=== PATIENT | male | born 1980 | race Caucasian/White ===

== ENCOUNTER 2018-02-24 17:36 | Emergency (ER) | payer SELFPAY ==
[~2018-02-24] VITALS: Ht 188 cm; Wt 75.0 kg
[~2018-02-24 17:36] MED LIST: POLY10O EACH EYE
[2018-02-24 17:55] VITALS: BP 130/69; PULSE 83; RESP 18; TEMP 100; TEMP 98; O2SAT 100
[2018-02-24] MEDS ORDERED: SULFAMETHOXAZOLE-TRIMETHOPRIM DS 800-160 MG TAB PO ONE (20:15)
[2018-02-24] MEDS ORDERED: CEPHALEXIN MONOHYDRATE 500 MG CAP PO ONE (20:15)
--- NOTE | 2018-02-24 20:20 | PD ---
HPI Chief Complaint: Skin Problem Time Seen by Provider: 20:07 Travel History International Travel<30 days: No Contact w/Intl Traveler<30days: No Traveled to known affect area: No History of Present Illness HPI 37-year-old male presents the emergency department with injury to the right inner anguiano with localized erythema secondary to the abrasion which occurred while he was surfing several days ago. Patient has had increased pain , swelling, and redness. Patient is unsure of his last tetanus shot. Pain is about a 4 out of 10. He has had increased swelling and redness in the last 24 hours which brought him in today. Patient denies fever, chills, or other symptoms. He has had some slight drainage from the wound which is serosanguineous in nature. Patient is also concerned about recent weight loss of approximately 10 pounds in the last month. He is also had some discomfort in the right lower back which he states is his "kidney". He denies penile discharge, dysuria, or other symptoms. No history of diabetes. No nausea or vomiting. No loss of appetite. He has no known drug allergies. PFSH Past Surgical History Other Surgery: Yes (ENDOSCOPY) Social History Alcohol Use: Yes (RARELY) Tobacco Use: No Substance Use: No Allergies-Medications (Allergen,Severity, Reaction): Coded Allergies: No Known Allergies (Verified , 10/27/13) Reported Meds & Prescriptions Reported Meds & Active Scripts Active Polytrim Opth (Polymyxin/Trimethoprim Sulfate) 10 Ml Soln 2 Drop EACH EYE Q4 7 Days Review of Systems Except as stated in HPI: all other systems reviewed are Neg General / Constitutional: No: Fever Eyes: No: Visual changes HENT: No: Headaches Cardiovascular: No: Chest Pain or Discomfort Respiratory: No: Shortness of Breath Gastrointestinal: Positive: Other (Recent weight loss.), No: Abdominal Pain Genitourinary: No: Dysuria Musculoskeletal: Positive: Myalgias (Right low back pain), No: Pain Skin: Positive Lesions, No Rash Neurologic: No: Weakness Psychiatric: No: Depression Endocrine: No: Polydipsia Hematologic/Lymphatic: No: Easy Bruising Physical Exam Narrative GENERAL: Patient appears in mild distress SKIN: Warm and dry. HEAD: Atraumatic. Normocephalic. EYES: Pupils equal and round. No scleral icterus. No injection or drainage. ENT: No nasal bleeding or discharge. Mucous membranes pink and moist. NECK: Trachea midline. No JVD. CARDIOVASCULAR: Regular rate and rhythm. RESPIRATORY: No accessory muscle use. Clear to auscultation. Breath sounds equal bilaterally. GASTROINTESTINAL: Abdomen soft, non-tender, nondistended. Hepatic and splenic margins not palpable. MUSCULOSKELETAL: Extremities without clubbing, cyanosis, or edema. No obvious deformities. NEUROLOGICAL: Awake and alert. No obvious cranial nerve deficits. Motor grossly within normal limits. Five out of 5 muscle strength in the arms and legs. Normal speech. PSYCHIATRIC: Appropriate mood and affect; insight and judgment normal. Data Data Last Documented VS Vital Signs Date Time Temp Pulse Resp B/P (MAP) Pulse Ox O2 Delivery O2 Flow Rate FiO2 02/24/18 17:55 100.0 83 18 130/69 (89) 100 Orders Orders Complete Blood Count With Diff (02/24/18 20:12) Comprehensive Metabolic Panel (02/24/18 20:12) Urinalysis - C+S If Indicated (02/24/18 20:12) Sulfamet-Trimeth Ds 800-160 Mg (Bactrim (02/24/18 20:15) Cephalexin (Keflex) (02/24/18 20:15) Tetanus/Diphtheria Tox Adult (Tetanus/Di (02/24/18 20:30) MDM Medical Decision Making Medical Screen Exam Complete: Yes Emergency Medical Condition: Yes Differential Diagnosis Right leg abrasion. Cellulitis. MRSA. Weight loss. Diabetes. Urinary tract infection. Narrative Course Patient appears in no obvious distress and is medically stable. Basic labs ordered including CBC, CMP, and urinalysis. Wound is cleansed and dressed by myself. Patient is given Keflex 500 mg p.o. now. Patient is given Bactrim DS p.o. now Patient is given tetanus 0.5 mg IM. Patient continued on Bactrim DS twice daily 7 days. Patient continued on Keflex 500 mg 3 times daily for 7 days. Patient is given Bactroban ointment to be applied twice daily for the next week. Wound care as discussed. Patient recommended to follow-up with [facility] as needed. Diagnosis Primary Impression: Abrasion, right lower leg, initial encounter Additional Impression: Cellulitis Qualified Codes: L03.115 - Cellulitis of right lower limb Patient Instructions: Abrasion (ED), Cellulitis (ED), General Instructions, Tetanus (DC) Additional Instructions: Wound is cleansed and dressed by myself. Patient is given Keflex 500 mg p.o. now. Patient is given Bactrim DS p.o. now Patient is given tetanus 0.5 mg IM. Patient continued on Bactrim DS twice daily 7 days. Patient continued on Keflex 500 mg 3 times daily for 7 days. Patient is given Bactroban ointment to be applied twice daily for the next week. Wound care as discussed. Patient recommended to follow-up with [facility] as needed. Med/Other Pt SpecificInfo: Prescription(s) given, Wound Care Disposition: DISCHARGE HOME Condition: Stable Donny Ramirez February 24, 2018 20:20
[2018-02-24] MEDS ORDERED: TETANUS/DIPHTHERIA TOXOID ADULT 0.5 ML VIAL IM ONE (20:30)
[2018-02-24] MEDS ORDERED: BACT800T5 PO (20:56)
[2018-02-24] MEDS ORDERED: MUPI2%T TOPICAL (20:56)
[2018-02-24] MEDS ORDERED: CEPH-460 PO (20:56)
[2018-02-24 21:16] LABS: BILIRUBIN, URINE NEG (NEG); BLOOD, URINE NEG (NEG); GLUCOSE,URINE NEG (NEG); KETONE, URINE NEG (NEG); MUCUS URINE FEW /lpf (OCC); NITRITE,URINE NEG (NEG); PH, URINE 5.5 (5.0-8.5); SQUAMOUS EPITHELIAL CELL URINE <1 /hpf (0-5); URINE COLOR YELLOW (YELLW/STRAW); URINE LEUKOCYTE ESTERASE NEG (NEG)
[2018-02-24 21:21] LABS: AUTOMATED NEUTROPHIL # 9.2 TH/MM3 (1.8-7.7); BASOPHIL # 0.1 TH/MM3 (0-0.2); BASOPHIL % 0.5 % (0.0-2.0); EOSINOPHIL # 0.2 TH/MM3 (0-0.4); EOSINOPHIL % 1.2 % (0.0-4.0); HEMATOCRIT 39.1 % (39.0-51.0); HEMOGLOBIN 13.3 GM/DL (13.0-17.0); LYMPH % 19.9 % (9.0-44.0); LYMPHOCYTE # 2.7 TH/MM3 (1.0-4.8); MEAN CELL VOLUME 88.8 FL (80.0-100.0); MEAN CORPUSCULAR HEMOGLOBIN 30.3 PG (27.0-34.0); MEAN CORPUSCULAR HGB CONC 34.2 % (32.0-36.0); MEAN PLATELET VOLUME 7.1 FL (7.0-11.0); MONOCYTE # 1.3 TH/MM3 (0-0.9); NEUT % 68.4 % (16.0-70.0); PLATELET COUNT 320 TH/MM3 (150-450); RED CELL DISTRIBUTION WIDTH 12.8 % (11.6-17.2); WHITE BLOOD COUNT 13.4 TH/MM3 (4.0-11.0)
[2018-02-24 21:50] LABS: ALBUMIN 3.7 GM/DL (3.4-5.0); AST (GOT) 20 U/L (15-37); BICARBONATE 26.3 MEQ/L (21.0-32.0); BLOOD UREA NITROGEN 19 MG/DL (7-18); CALCIUM 9.2 MG/DL (8.5-10.1); CHLORIDE 101 MEQ/L (98-107); CREATININE 0.91 MG/DL (0.60-1.30); GLOMERULAR FILTRATION RATE 95 ML/MIN (>89); GLUCOSE,RANDOM 93 MG/DL (74-106); SODIUM (NA) 136 MEQ/L (136-145)
[2018-02-24 21:51] LABS: ALT (GPT) 20 U/L (12-78)
[2018-02-24 21:54] LABS: ALKALINE PHOSPHATASE 98 U/L (45-117); TOTAL BILIRUBIN ADULT 0.3 MG/DL (0.2-1.0); TOTAL PROTEIN 7.7 GM/DL (6.4-8.2)
== END 2018-02-24 22:17 | disposition home or self-care (01) ==
LOC: NEPD 17:36
DX: S80.811A Abrasion, right lower leg, initial encounter (principal); L03.115 Cellulitis of right lower limb; X58.XXXA Exposure to other specified factors, initial encounter; Y93.18 Activity, surfing, windsurfing and boogie boarding; Z23 Encounter for immunization
CPT/HCPCS: 80053; 81001; 85025; 90471; 90714